=== PATIENT | female | born 1970 | race Caucasian/White ===

== ENCOUNTER 2017-07-02 10:41 | Day surgery (SDC) | payer BC ==
[2017-07-02] MEDS ORDERED: FENTANYL PF 100MCG/2ML VIAL IV ONE (16:12)
[2017-07-02] MEDS ORDERED: LIDOCAINE 2% MDV (20MG/ML) 20ML VIAL IV ONE (16:12)
[2017-07-02] MEDS ORDERED: PROPOFOL 10 MG/ML VIAL IV ONE (16:12)
--- NOTE | 2017-07-08 09:50 | Operative Note ---
DATE OF SURGERY: 07/02/2017 OPERATION: ESOPHAGOGASTRODUODENOSCOPY with biopsy. PREOPERATIVE DIAGNOSIS: Dysphagia and GERD. POSTOPERATIVE DIAGNOSES: 1. Irregular Z line, suspected Ramesh's. 2. Otherwise normal exam. PROCEDURE: After informed consent was obtained from the patient, she was placed in the left lateral decubitus position in the endoscopy suite, sedated and monitored by the department of anesthesia. A well-lubricated ETN332 gastroscope was placed in the posterior oropharynx and under direct visualization passed to the proximal esophagus. The endoscope was advanced through the proximal, mid, and distal esophagus. The GE junction was irregular with columnar islands. The remainder of the esophagus appeared unremarkable. The gastric body, antrum, pylorus, duodenal bulb, and sweep were unremarkable. J-turn views of the proximal stomach were unremarkable. The endoscope was straightened. The antrum again inspected with no new findings noted. Biopsies were obtained from the GE junction. The endoscope was removed from the patient with no new findings noted. RECOMMENDATIONS: The patient should avoid alcohol and tobacco. She should continue on her PPI twice daily. Further recommendations will be based on tissue histology. If her dysphagia persists, I would suggest an esophagram be performed. As always, thank you for allowing me to participate in the healthcare of your patients. CC: Nneka LOUIS
== END 2017-07-02 11:32 | disposition home or self-care (01) ==
LOC: HOP 10:41
PROVIDERS: ATTEND Internal Medicine Gastroenterology
DX: K22.70 Barrett's esophagus without dysplasia (principal); K21.9 Gastro-esophageal reflux disease without esophagitis; I10 Essential (primary) hypertension; E78.00 Pure hypercholesterolemia, unspecified
CPT/HCPCS: 43235; 00740; J3010